=== PATIENT | female | born 1965 | race Caucasian/White ===

== ENCOUNTER 2018-02-18 16:58 | Inpatient (IN) ==
[2018-02-18] MEDS ORDERED: Tetanus/Diphtheria Toxoid Adult Vaccine Inj 0.5 ML Vial IM ONE (17:20)
[2018-02-18] MEDS ORDERED: Morphine Inj 4 MG/ML Vial IV.PUSH ONE (17:25)
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
[2018-02-18 18:27] LABS: Baso % (Auto) 0.4 % (0.0-2.0); Eos # (Auto) 0.1 th/mm3 (0.0-0.4); Eos % (Auto) 0.5 % (0.0-4.0); Hematocrit 38.4 % (35.0-46.0); Hemoglobin 13.2 gm/dL (11.6-15.3); Lymph # (Auto) 1.7 th/mm3 (1.0-4.8); Lymph % (Auto) 16.6 % (9.0-44.0); Mean Corpuscular HGB Conc 34.5 % (32.0-36.0); Mean Corpuscular Hemoglobin 31.2 pg (27.0-34.0); Mean Corpuscular Volume 90.5 fL (80.0-100.0); Mean Platelet Volume 6.1 fL (7.0-11.0); Mono # (Auto) 0.5 th/mm3 (0.0-0.9); Mono % (Auto) 4.8 % (0.0-8.0); Neut % (Auto) 77.7 % (16.0-70.0); Platelet Count 251 th/mm3 (150-450); Red Blood Count 4.24 mil/mm3 (4.00-5.30); Red Cell Distribution Width 13.3 % (11.6-17.2); White Blood Count 10.3 th/mm3 (4.0-11.0)
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
[2018-02-18 18:38] LABS: Activated Partial Thrombo Time 22.4 sec (24.3-30.1); Prothrombin Time 10.6 sec (9.8-11.6)
--- NOTE | 2018-02-18 18:38 | XR ---
EXAM DATE: 02/18/2018 6:07 PM EDT AGE/SEX: 52 years / Female INDICATIONS: Evaluate for pneumothorax, pneumonia or communicable disease. Pre op for right leg rakesh sindhu. CLINICAL DATA: This is the patient's subsequent encounter. Patient reports that signs and symptoms h ave been present for 1 day and indicates a pain score of 0/10. MEDICAL/SURGICAL HISTORY: None. None. COMPARISON: . FINDINGS: A single AP view of the chest demonstrates the lungs to be symmetrically aerated without evidence of mass, infiltrate or effusion. The cardiomediastinal contours are unremarkable. Osseous structures a re intact. CONCLUSION: Negative examination. Electronically signed by: Pedro Wilson MD 02/18/2018 6:36 PM EDT
--- NOTE | 2018-02-18 18:44 | XR ---
EXAM DATE: 02/18/2018 6:19 PM EDT AGE/SEX: 52 years / Female INDICATIONS: Fall today. Left hand pain. Numbness in second and third digits since fall. CLINICAL DATA: This is the patient's subsequent encounter. Patient reports that signs and symptoms h ave been present for 1 day and indicates a pain score of 4/10. MEDICAL/SURGICAL HISTORY: None. None. COMPARISON: . FINDINGS: Bony structures are intact and in normal alignment. Osseous density is normal. Soft tissues are unre markable. No radiopaque foreign bodies seen. CONCLUSION: No evidence of recent bony injury. Electronically signed by: Pedro Wilson MD 02/18/2018 6:43 PM EDT
[2018-02-18 18:58] LABS: Albumin 3.7 g/dL (3.4-5.0); Anion Gap 11 meq/L (5-15); Aspartate Aminotransferase 15 U/L (15-37); Blood Urea Nitrogen 13 mg/dL (7-18); Calcium 8.3 mg/dL (8.5-10.1); Carbon Dioxide 25.1 meq/L (21.0-32.0); Chloride 105 meq/L (98-107); Glomerular Filtration Rate 64 mL/min (>89); Glucose,Random 106 mg/dL (74-106); Potassium 3.6 meq/L (3.5-5.1); Sodium 141 meq/L (136-145)
[2018-02-18 19:00] LABS: Alanine Aminotransferase 22 U/L (10-53)
[2018-02-18 19:01] LABS: Alkaline Phosphatase 67 U/L (45-117); Total Protein 6.8 g/dL (6.4-8.2)
[2018-02-18] MEDS ORDERED: Bisacodyl 10 MG Supp RECTAL PRN (19:12)
[2018-02-18] MEDS ORDERED: Acetaminophen 325 MG Tablet PO PRN (19:12)
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
[2018-02-18] MEDS ORDERED: Chlorhexidine Gluconate 2% 1 Pack (2 Cloths) TOPICAL ONE (20:15)
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
[2018-02-18] MEDS ORDERED: Sodium Chlor 0.9% Inj 500 ML IV.SIG SCH (21:00)
[2018-02-18] MEDS: Senna/Docusate Sodium 8.6/50 MG Tablet PO SCH (21:25)
[2018-02-18] MEDS: Sod Chloride 0.9% Inj 1,000 ML IV.CONT SCH (21:25)
[2018-02-19] MEDS: Morphine Sulfate Inj 2 MG/ML Vial IV.PUSH PRN ×2 (00:25→07:52)
[2018-02-19 07:11] LABS: Bacteria,Urine Few /hpf; Bilirubin,Urine Negative (Negative); Clarity,Urine Hazy (Clear); Color,Urine Yellow (Yellw/Straw); Glucose,Urine (UA) Negative (Negative); Leukocyte Esterase,Urine Negative (Negative); Mucus,Urine Few /lpf (Occasional); Nitrite,Urine Negative (Negative); Specific Gravity,Urine 1.017 (1.002-1.035); Squamous Epithelial Cell,Urine 3 /hpf (0-5)
--- NOTE | 2018-02-19 07:32 | P.DCO ---
- Physical Therapy Order: Evaluate and treat, Improve ambulation, Strength and gait training - Case Management Consult Yes - Certification I have seen patient Maryuri Ward on 02/19/18. My clinical findings support the need for the requested home health care services because: Deconditioned with increased weakness I certify that my clinical findings support that this patient is homebound because: Unsteady gait/balance
[2018-02-19] MEDS: Sod Chloride 0.9% Inj 1,000 ML IV.CONT SCH ×3 (07:57→23:35)
[2018-02-19] MEDS: Senna/Docusate Sodium 8.6/50 MG Tablet PO SCH ×2 (08:00→21:00)
[2018-02-19 08:57] LABS: Baso % (Auto) 0.5 % (0.0-2.0); Eos # (Auto) 0.1 th/mm3 (0.0-0.4); Eos % (Auto) 0.6 % (0.0-4.0); Hematocrit 38.3 % (35.0-46.0); Hemoglobin 13.3 gm/dL (11.6-15.3); Lymph # (Auto) 1.8 th/mm3 (1.0-4.8); Lymph % (Auto) 19.8 % (9.0-44.0); Mean Corpuscular HGB Conc 34.7 % (32.0-36.0); Mean Corpuscular Hemoglobin 31.4 pg (27.0-34.0); Mean Corpuscular Volume 90.5 fL (80.0-100.0); Mean Platelet Volume 6.8 fL (7.0-11.0); Mono # (Auto) 0.7 th/mm3 (0.0-0.9); Mono % (Auto) 7.5 % (0.0-8.0); Neut # (Auto) 6.4 th/mm3 (1.8-7.7); Neut % (Auto) 71.6 % (16.0-70.0); Platelet Count 221 th/mm3 (150-450); Red Blood Count 4.23 mil/mm3 (4.00-5.30); Red Cell Distribution Width 13.3 % (11.6-17.2); White Blood Count 8.9 th/mm3 (4.0-11.0)
[2018-02-19] MEDS ORDERED: Influenza (Quadrivalent) Vaccine 0.5 ML Syringe IM ONE (09:00)
[2018-02-19 09:32] LABS: Alanine Aminotransferase 20 U/L (10-53); Albumin 3.4 g/dL (3.4-5.0); Anion Gap 8 meq/L (5-15); Aspartate Aminotransferase 14 U/L (15-37); Blood Urea Nitrogen 13 mg/dL (7-18); Calcium 8.1 mg/dL (8.5-10.1); Carbon Dioxide 24.7 meq/L (21.0-32.0); Chloride 108 meq/L (98-107); Glomerular Filtration Rate 72 mL/min (>89); Glucose,Random 97 mg/dL (74-106); Potassium 3.8 meq/L (3.5-5.1); Sodium 141 meq/L (136-145)
[2018-02-19 09:35] LABS: Alkaline Phosphatase 67 U/L (45-117); Total Protein 6.6 g/dL (6.4-8.2)
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
[2018-02-19] MEDS ORDERED: Lidocaine PF 1% Inj 5 ML Syringe OTHER ONE (20:29)
[2018-02-19] MEDS ORDERED: Phenylephrine/NS 1000 MCG/10ML Syringe IV.PUSH ONE (20:29)
--- NOTE | 2018-02-19 22:20 | ECG ---
Date Performed: 02/18/2018 Time Performed: 18:53:02 PTAGE: 52 years EKG: Sinus rhythm NORMAL ECG NO PREVIOUS TRACING DOCTOR: Olu Wade Interpretating Date/Time 02/19/2018 22:20:07
[2018-02-19] MEDS ORDERED: Morphine Inj 4 MG/ML Vial ONE (22:43)
[2018-02-19] MEDS ORDERED: fentaNYL Citrate Inj 100 MCG/2 ML Ampul ONE (22:43)
--- NOTE | 2018-02-19 22:52 | XR ---
EXAM DATE: 02/19/2018 12:00 AM EDT AGE/SEX: 52 years / Female INDICATIONS: Open reduction right ankle. CLINICAL DATA: This is the patient's subsequent encounter. Patient reports that signs and symptoms h ave been present for 2 days and indicates a pain score of Nonresponsive. MEDICAL/SURGICAL HISTORY: Non-responsive. Non-responsive. COMPARISON: No prior exams available for comparison. FINDINGS: There is plate and screw fixation of the distal fibula and lag screw fixation of the medial malleolus normal alignment. CONCLUSION: Fixation as above. Electronically signed by: Aleksander Grant MD 02/19/2018 10:51 PM EDT
[2018-02-19] MEDS ORDERED: *morphine SULFATE 4 MG/ML PERIprocedure ONLY ONE (22:55)
[2018-02-20] MEDS ORDERED: ceFAZolin 2 GM Premix Inj 2 GM/50 ML PIGGYBACK IV.SIG SCH (04:00)
[2018-02-20] MEDS: Sod Chloride 0.9% Inj 1,000 ML IV.CONT SCH (04:36)
[2018-02-20 08:13] VITALS: BP 107/61; PULSE 78; RESP 18; TEMP 98.5; O2SAT 96
[2018-02-20] MEDS: Senna/Docusate Sodium 8.6/50 MG Tablet PO SCH (08:27)
[2018-02-20] MEDS ORDERED: Influenza (Quadrivalent) Vaccine 0.5 ML Syringe IM ONE (09:00)
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
--- NOTE | 2018-02-20 10:44 | P.PNWCN ---
Wound Care Nurse Consult Description: Wound consult ordered by for wound management. Communicated with: Gayathri NÚÑEZ Recommendation: Please refer to wound care orders. Additional information: Patient was not seen by wound care staff today .Patient currently has appropriate wound care orders in place for Upper extremity abrasions ordered by 02/18
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
== END 2018-02-20 12:33 | disposition home health service (06) ==
LOC: NEPC 16:58 → NEDA 19:21 → N06 19:56
PROVIDERS: ADMIT Internal Medicine; ATTEND Internal Medicine
PROC: ORIFANK (2018-02-19 20:29)